=== PATIENT | male | born 1985 | race Caucasian/White ===

== ENCOUNTER 2017-02-20 13:57 | Outpatient (CLI) | payer MEDICAID | END 2017-02-20 13:58 | disposition critical access hospital (66) | DX: R06.9 Unspecified abnormalities of breathing (principal) | CPT/HCPCS: A0425; A0429 ==

== ENCOUNTER 2017-02-20 14:00 | Outpatient (CLI) | payer MEDICAID | END 2017-02-20 14:30 | disposition home or self-care (01) | DX: E66.01 Morbid (severe) obesity due to excess calories (principal); R06.02 Shortness of breath ==

== ENCOUNTER 2017-02-20 14:23 | Emergency (ER) | payer MEDICAID ==
[2017-02-20] MEDS ORDERED: BENZONATATE 100 MG CAPSULE PO STA (18:09)
[2017-02-20] MEDS ORDERED: ALBUTEROL 8 GM INHALER INH STA ×2 (18:09→19:22)
[2017-02-20] MEDS ORDERED: ALBUTEROL NEB 2.5 MG/3 ML INH STA ×2 (18:10→19:22)
[2017-02-20] MEDS ORDERED: guaiFENesin/DEXTROMETHORPHAN 10 ML UDC PO STA (18:10)
[2017-02-20] MEDS ORDERED: BENZONATATE 100 MG CAPSULE PO ONE (18:26)
[2017-02-20] MEDS ORDERED: guaiFENesin/DEXTROMETHORPHAN 10 ML UDC ONE (18:26)
[2017-02-20] MEDS ORDERED: ALBUTEROL NEB 2.5 MG/3 ML INH ONE ×2 (18:49→19:07)
[2017-02-20] MEDS ORDERED: ALBUTEROL 8 GM INHALER INH ONE (19:25)
== END 2017-02-20 20:05 | disposition home or self-care (01) ==
DX: J40 Bronchitis, not specified as acute or chronic (principal); I11.0 Hypertensive heart disease with heart failure; I50.9 Heart failure, unspecified; I25.2 Old myocardial infarction; E11.9 Type 2 diabetes mellitus without complications; E78.00 Pure hypercholesterolemia, unspecified; G47.30 Sleep apnea, unspecified; M19.90 Unspecified osteoarthritis, unspecified site; E66.01 Morbid (severe) obesity due to excess calories; F17.200 Nicotine dependence, unspecified, uncomplicated
CPT/HCPCS: 36415; 71020; 80048; 83880; 84484; 85025; 85379; 93005; 93010; 94640; 94664; 99284; A9270; J7613

== ENCOUNTER 2017-03-16 14:40 | Inpatient (IN) | payer MEDICAID ==
[2017-03-16] MEDS ORDERED: IPRATROPIUM/ALBUTEROL 3 ML NEB INH ONE ×2 (14:58→16:53)
[2017-03-16] MEDS ORDERED: IPRATROPIUM/ALBUTEROL 3 ML NEB INH STA ×2 (15:00→16:44)
[2017-03-16] MEDS ORDERED: DEXAMETHASONE 10 MG/ML VIAL PO STA (15:01)
[2017-03-16] MEDS ORDERED: DEXAMETHASONE 10 MG/ML VIAL ONE (15:04)
[2017-03-16] MEDS ORDERED: CHERRY SYRUP 10 ML UDC PO ONE (15:04)
[2017-03-16] MEDS ORDERED: cefTRIAXone 1 GM in SODIUM CHLORIDE 0.9% MINIBAG 100 ML IV STA (16:45)
[2017-03-16] MEDS ORDERED: cefTRIAXone 1 GM VIAL ONE (17:05)
[2017-03-16] MEDS ORDERED: WATER FOR INJECTION,STERILE 10 ML ONE (17:09)
[2017-03-16] MEDS ORDERED: ALBUTEROL NEB 2.5 MG/3 ML INH STA (17:29)
[2017-03-16] MEDS ORDERED: ALBUTEROL NEB 2.5 MG/3 ML INH ONE (17:32)
[2017-03-16] MEDS ORDERED: DEXTROSE 5%-0.45% NACL 1,000 ML IV SCH (19:00)
[2017-03-16] MEDS: ALBUTEROL NEB 2.5 MG/3 ML INH SCH (20:25)
[2017-03-16] MEDS: ATORVASTATIN 40 MG TABLET PO SCH (21:40)
[2017-03-16] MEDS: HEPARIN 5,000 UNIT/ML VIAL SUBQ SCH (21:41)
[2017-03-16] MEDS: INSULIN GLARGINE 300 UNIT/3 ML PEN SUBQ SCH (21:43)
[2017-03-16] MEDS: INSULIN ASPART 300 UNIT/3 ML PEN SUBQ SCH (21:44)
[2017-03-16] MEDS: SODIUM CHLORIDE FLUSH 0.9% 10 ML SYRINGE IVP SCH (23:52)
[2017-03-16] MEDS: FUROSEMIDE 40 MG/4 ML VIAL IVP SCH (23:52)
[2017-03-17] MEDS: ALBUTEROL NEB 2.5 MG/3 ML INH SCH ×4 (06:00→20:09)
[2017-03-17] MEDS: FUROSEMIDE 40 MG/4 ML VIAL IVP SCH ×2 (06:00→14:05)
[2017-03-17] MEDS: SODIUM CHLORIDE FLUSH 0.9% 10 ML SYRINGE IVP SCH ×3 (06:00→20:45)
[2017-03-17] MEDS: INSULIN ASPART 300 UNIT/3 ML PEN SUBQ SCH ×4 (08:31→20:42)
[2017-03-17] MEDS: HEPARIN 5,000 UNIT/ML VIAL SUBQ SCH ×2 (08:46→20:41)
[2017-03-17] MEDS ORDERED: SODIUM CHLORIDE 0.9% 250 ML IV ONE (08:48)
[2017-03-17] MEDS: LISINOPRIL 20 MG TABLET PO SCH (08:51)
[2017-03-17] MEDS: AZITHROMYCIN INJ 500 MG in SODIUM CHLORIDE 0.9% 250 ML IV SCH (08:52)
[2017-03-17] MEDS: cefTRIAXone 1 GM in SODIUM CHLORIDE 0.9% MINIBAG 100 ML IV SCH (08:52)
[2017-03-17] MEDS: INSULIN GLARGINE 300 UNIT/3 ML PEN SUBQ SCH ×2 (09:04→20:44)
[2017-03-17] MEDS: POLYETHYLENE GLYCOL 3350 17 GM PACKET PO SCH (09:05)
[2017-03-17] MEDS ORDERED: ASPIRIN 325 MG TABLET PO SCH (12:00)
[2017-03-17] MEDS: guaiFENesin/CODEINE 5 ML UDC PO PRN ×2 (12:55→19:57)
[2017-03-17] MEDS: ASPIRIN CHEW 81 MG TABLET PO SCH (12:55)
[2017-03-17] MEDS: SODIUM CHLORIDE FLUSH 0.9% 10 ML SYRINGE IVP PRN (14:05)
[2017-03-17] MEDS: ATORVASTATIN 40 MG TABLET PO SCH (20:43)
[2017-03-18] MEDS: ALBUTEROL NEB 2.5 MG/3 ML INH SCH ×4 (00:57→19:35)
[2017-03-18] MEDS: guaiFENesin/CODEINE 5 ML UDC PO PRN ×3 (01:43→23:29)
[2017-03-18] MEDS: FUROSEMIDE 40 MG/4 ML VIAL IVP SCH ×2 (05:48→14:44)
[2017-03-18] MEDS: SODIUM CHLORIDE FLUSH 0.9% 10 ML SYRINGE IVP PRN (05:48)
[2017-03-18] MEDS: SODIUM CHLORIDE FLUSH 0.9% 10 ML SYRINGE IVP SCH ×3 (05:49→20:38)
[2017-03-18] MEDS: INSULIN ASPART 300 UNIT/3 ML PEN SUBQ SCH ×4 (07:46→20:49)
[2017-03-18] MEDS: LISINOPRIL 20 MG TABLET PO SCH (09:18)
[2017-03-18] MEDS: ASPIRIN CHEW 81 MG TABLET PO SCH (09:18)
[2017-03-18] MEDS: INSULIN GLARGINE 300 UNIT/3 ML PEN SUBQ SCH ×2 (09:19→20:38)
[2017-03-18] MEDS: HEPARIN 5,000 UNIT/ML VIAL SUBQ SCH ×2 (09:19→20:36)
[2017-03-18] MEDS: AZITHROMYCIN INJ 500 MG in SODIUM CHLORIDE 0.9% 250 ML IV SCH (09:20)
[2017-03-18] MEDS: POLYETHYLENE GLYCOL 3350 17 GM PACKET PO SCH (09:20)
[2017-03-18] MEDS: ACETAMINOPHEN 325 MG TABLET PO PRN ×2 (10:46→20:37)
[2017-03-18] MEDS: cefTRIAXone 1 GM in SODIUM CHLORIDE 0.9% MINIBAG 100 ML IV SCH (10:49)
[2017-03-18] MEDS: ATORVASTATIN 40 MG TABLET PO SCH (20:37)
[2017-03-19] MEDS: ALBUTEROL NEB 2.5 MG/3 ML INH SCH ×3 (01:30→12:30)
[2017-03-19] MEDS: BENZONATATE 100 MG CAPSULE PO PRN ×2 (04:23→17:27)
[2017-03-19] MEDS: FUROSEMIDE 40 MG/4 ML VIAL IVP SCH ×2 (06:33→14:45)
[2017-03-19] MEDS: SODIUM CHLORIDE FLUSH 0.9% 10 ML SYRINGE IVP SCH ×3 (06:34→21:22)
[2017-03-19] MEDS: LISINOPRIL 20 MG TABLET PO SCH (06:55)
[2017-03-19] MEDS: INSULIN ASPART 300 UNIT/3 ML PEN SUBQ SCH ×4 (08:06→20:18)
[2017-03-19] MEDS: ASPIRIN CHEW 81 MG TABLET PO SCH (08:07)
[2017-03-19] MEDS: INSULIN GLARGINE 300 UNIT/3 ML PEN SUBQ SCH ×2 (08:07→20:20)
[2017-03-19] MEDS: AZITHROMYCIN INJ 500 MG in SODIUM CHLORIDE 0.9% 250 ML IV SCH (09:47)
[2017-03-19] MEDS: cefTRIAXone 1 GM in SODIUM CHLORIDE 0.9% MINIBAG 100 ML IV SCH (09:47)
[2017-03-19] MEDS: POLYETHYLENE GLYCOL 3350 17 GM PACKET PO SCH (09:48)
[2017-03-19] MEDS: HEPARIN 5,000 UNIT/ML VIAL SUBQ SCH ×2 (09:51→20:21)
[2017-03-19] MEDS: guaiFENesin/CODEINE 5 ML UDC PO PRN (17:27)
[2017-03-19] MEDS: ACETAMINOPHEN 325 MG TABLET PO PRN (20:12)
[2017-03-19] MEDS: ATORVASTATIN 40 MG TABLET PO SCH (20:13)
[2017-03-19] MEDS ORDERED: MORPHINE 2 MG/ML SYRINGE IVP SCH (21:05)
[2017-03-20] MEDS: ALBUTEROL NEB 2.5 MG/3 ML INH SCH ×2 (00:58→05:08)
[2017-03-20] MEDS ORDERED: IPRATROPIUM/ALBUTEROL 3 ML NEB INH ONE (02:37)
[2017-03-20] MEDS: PROPOFOL 1000 MG/100 ML 100 ML IV SCH ×3 (02:43→12:45)
[2017-03-20] MEDS ORDERED: IPRATROPIUM/ALBUTEROL 3 ML NEB INH STA (02:45)
[2017-03-20] MEDS ORDERED: FUROSEMIDE 100 MG/10 ML VIAL IVP SCH (04:00)
[2017-03-20] MEDS: SODIUM CHLORIDE FLUSH 0.9% 10 ML SYRINGE IVP SCH ×2 (04:33→09:30)
[2017-03-20] MEDS ORDERED: PANTOPRAZOLE 40 MG VIAL IVP SCH (07:00)
[2017-03-20] MEDS ORDERED: SODIUM CHLORIDE 0.9% 250 ML IV ONE (08:47)
[2017-03-20] MEDS ORDERED: CHLORHEXIDINE GLUCONATE 15 ML UDC PO SCH (09:00)
[2017-03-20] MEDS ORDERED: LORazepam 2 MG/ML SYRINGE IVP STA (09:01)
[2017-03-20] MEDS ORDERED: MORPHINE 2 MG/ML SYRINGE IVP PRN (09:01)
[2017-03-20] MEDS: cefTRIAXone 1 GM in SODIUM CHLORIDE 0.9% MINIBAG 100 ML IV SCH (09:07)
[2017-03-20] MEDS: INSULIN GLARGINE 300 UNIT/3 ML PEN SUBQ SCH (09:13)
[2017-03-20] MEDS: HEPARIN 5,000 UNIT/ML VIAL SUBQ SCH (09:16)
[2017-03-20] MEDS: INSULIN REGULAR HUMAN 100 UNIT/1 ML 10 ML MDV SUBQ SCH ×2 (09:33→12:47)
[2017-03-20] MEDS: AZITHROMYCIN INJ 500 MG in SODIUM CHLORIDE 0.9% 250 ML IV SCH (09:46)
[2017-03-20] MEDS: POLYETHYLENE GLYCOL 3350 17 GM PACKET PO SCH (12:46)
[2017-03-20] MEDS: ASPIRIN CHEW 81 MG TABLET PO SCH (12:46)
[2017-03-20] MEDS: LISINOPRIL 20 MG TABLET PO SCH (12:46)
== END 2017-03-20 14:10 | disposition short-term general hospital (02) | DRG 208 ==
PROC: 5A1935Z Respiratory Ventilation, Less than 24 Consecutive Hours (ICD-10-PCS; principal; 2017-03-20)
DX: J96.21 Acute and chronic respiratory failure with hypoxia (principal); J18.9 Pneumonia, unspecified organism; Z68.45 Body mass index [BMI] 70 or greater, adult; J96.22 Acute and chronic respiratory failure with hypercapnia; E66.01 Morbid (severe) obesity due to excess calories; G47.33 Obstructive sleep apnea (adult) (pediatric); E11.9 Type 2 diabetes mellitus without complications; I11.0 Hypertensive heart disease with heart failure; I50.9 Heart failure, unspecified; E78.5 Hyperlipidemia, unspecified; M17.0 Bilateral primary osteoarthritis of knee; I27.2 Other secondary pulmonary hypertension; I25.10 Atherosclerotic heart disease of native coronary artery without angina pectoris; F17.210 Nicotine dependence, cigarettes, uncomplicated; Z86.74 Personal history of sudden cardiac arrest; Z87.01 Personal history of pneumonia (recurrent); Z79.4 Long term (current) use of insulin; Z78.1 Physical restraint status